=== PATIENT | female | born 1955 | race Two or more races ===

== ENCOUNTER 2017-10-20 10:16 | Outpatient (CLI) | payer OTHER | END 2017-10-20 10:21 | disposition home or self-care (01) | LOC: SONOGRAMA 10:16 | DX: M25.512 Pain in left shoulder (principal) ==

== ENCOUNTER 2017-10-20 10:22 | Outpatient (CLI) | payer OTHER | END 2017-10-20 10:33 | disposition home or self-care (01) | LOC: RAD 10:22 | DX: M25.512 Pain in left shoulder (principal) ==

== ENCOUNTER → 2019-08-07 | Outpatient (CLI) | payer OTHER | END | disposition home or self-care (01) | LOC: RAD 15:16 | DX: M51.27 Other intervertebral disc displacement, lumbosacral region (principal); M81.0 Age-related osteoporosis without current pathological fracture ==

== ENCOUNTER 2019-08-11 14:30 | Outpatient (CLI) | payer OTHER | END 2019-08-11 14:36 | disposition home or self-care (01) | LOC: MAMO-SONO 14:30 → SONOGRAMA 14:30 | DX: E04.1 Nontoxic single thyroid nodule (principal) ==

== ENCOUNTER 2022-05-05 08:56 | Outpatient (CLI) | payer OTHER | END 2022-05-05 09:11 | disposition home or self-care (01) | LOC: MAMO-SONO 08:56 | PROVIDERS: ATTEND Obstetrics & Gynecology | DX: N64.4 Mastodynia (principal); N92.5 Other specified irregular menstruation ==

== ENCOUNTER 2023-05-13 14:11 | Outpatient (CLI) | payer OTHER | END 2023-05-13 14:20 | disposition home or self-care (01) | LOC: MAMO-SONO 14:11 | PROVIDERS: ATTEND Specialist | DX: D25.1 Intramural leiomyoma of uterus (principal); N60.21 Fibroadenosis of right breast; N60.22 Fibroadenosis of left breast; Z12.31 Encounter for screening mammogram for malignant neoplasm of breast ==

== ENCOUNTER 2023-06-21 10:39 | Outpatient (CLI) | payer OTHER | END 2023-06-21 10:46 | disposition home or self-care (01) | LOC: RAD 10:39 | PROVIDERS: ATTEND Obstetrics & Gynecology | DX: R07.9 Chest pain, unspecified (principal) ==

== ENCOUNTER 2024-11-08 08:01 | Outpatient (CLI) | payer OTHER | END 2024-11-08 08:07 | disposition home or self-care (01) | LOC: SONOGRAMA 08:01 | PROVIDERS: ATTEND Internal Medicine Gastroenterology | DX: R10.11 Right upper quadrant pain (principal) ==

== ENCOUNTER 2024-11-16 07:03 | Outpatient (CLI) | payer OTHER | END 2024-11-16 07:08 | disposition home or self-care (01) | LOC: TOM 07:03 | PROVIDERS: ATTEND Internal Medicine Gastroenterology | DX: R10.30 Lower abdominal pain, unspecified (principal); K62.5 Hemorrhage of anus and rectum; R19.7 Diarrhea, unspecified | CPT/HCPCS: 74178; Q9965 ==

== ENCOUNTER → 2024-11-16 09:01 | Outpatient (CLI) | payer OTHER ==
[2024-11-16 10:28] LABS: CREATININE SERUM 0.8 mg/dL (0.55-1.02)
== END | disposition home or self-care (01) ==
LOC: LAB 09:01
PROVIDERS: ATTEND Radiology Diagnostic Radiology
DX: R10.13 Epigastric pain (principal)

== ENCOUNTER 2025-06-01 12:18 | Outpatient (CLI) | payer OTHER | END 2025-06-01 12:25 | disposition home or self-care (01) | LOC: RAD 12:18 | PROVIDERS: ATTEND Internal Medicine | DX: M79.672 Pain in left foot (principal) ==

== ENCOUNTER 2025-06-26 10:21 | Outpatient (CLI) | payer OTHER | END 2025-06-26 10:24 | disposition home or self-care (01) | LOC: RAD 10:21 | PROVIDERS: ATTEND Physical Medicine & Rehabilitation Hospice and Palliative Medicine | DX: M25.512 Pain in left shoulder (principal); M75.32 Calcific tendinitis of left shoulder ==